=== PATIENT | female | born 1935 | race African-American/Black ===

== ENCOUNTER 2016-07-06 07:57 | Day surgery (SDC) | payer OTHER ==
[2016-06-30 14:28] VITALS: BMI 34.7
[2016-07-06] MEDS: CYCLOPENTOLATE HCL 1% OPHTH SOLN 2 ML BOTTLE ONE ×5 (08:15→08:35)
[2016-07-06] MEDS: FLURBIPROFEN 0.03% OPHTH SOLN 2.5 ML BOTTLE ONE ×5 (08:15→08:35)
[2016-07-06] MEDS: TROPICAMIDE 1% OPHTH SOLN 15 ML BOTTLE ONE ×5 (08:15→08:35)
[2016-07-06] MEDS: PHENYLEPHRINE 2.5% OPHTH SOLN 15 ML BOTTLE ONE ×5 (08:15→08:35)
[2016-07-06] MEDS: GENTAMICIN SULFATE 0.3% OPHTHALMIC (EYE DROPS) 5ML BOTTLE ONE ×5 (08:15→08:35)
[2016-07-06] MEDS ORDERED: ACETAMINOPHEN 325 MG TABLET (FP) PO PRN (09:45)
[2016-07-06 11:15] VITALS: TEMP 97.5
[2016-07-06 12:03] VITALS: BP 163/73; PULSE 65
--- NOTE | 2016-07-06 15:09 | OP ---
DATE OF OPERATION: 07/06/2016 TITLE OF PROCEDURE: Planned extracapsular cataract extraction, phacoemulsification, and insertion of posterior chamber intraocular lens implant through a myotic pupil. SURGEON: Efren Agrawal MD COST ACCOUNTING ANALYST SURGEON: Efren Agrawal MD COMPLICATIONS: None. PREOPERATIVE DIAGNOSES: Cataract, right eye and pupillary miosis, right eye. POSTOPERATIVE DIAGNOSES: Cataract, right eye and pupillary miosis, right eye. ANESTHESIA: Local standby. NURSE MEDICAL TRANSCRIBER: ANESTHESIOLOGIST: MD COMPLICATIONS: None. FINDINGS AND PROCEDURE: After successful peribulbar anesthesia a lid block was given to the right eye. The patient was prepped and draped in the usual manner to expose the right eye. A lid speculum was inserted, and the microscope brought into position over the eye. Incisions were made temporally, 2 incisions, 2.4 mm measuring in size inferiorly at 7 o'clock and also micro sharp incision at 11 o'clock. Viscoat was injected into the anterior chamber, filled the anterior chamber, and then, this was followed by a capsulorrhexis with forceps and then hydrodissection with BSS injection using a cannula. After the nucleus was mobile, the nucleus was chopped into 4 quadrants and phacoemulsified completely without complication. This was followed by irrigation and aspiration of all cortical material, leaving an intact posterior capsule and red reflex. It should be noted that this was done through a very myotic pupil which made the procedure more difficult. The Provisc was injected into the posterior chamber. The implant had been loaded into the cartridge, and it was injected such that the implant was placed into the posterior chamber, and it was unfolded and fixated such that the haptics were in the capsular bag, and then, the Provisc was then aspirated out and replaced with Miochol and Miostat BSS. The incisions were hydrated with BSS and tested for leakage, and none was found. The eye was now at normal tension. At this point, the implant was fixated in the capsular bag, centrally located with a round pupil intact posterior capsule. Red reflex present. Normal tension present. Topical Betoptic S and Maxitrol suspensions were placed, as was bacitracin ophthalmic ointment. The Tegaderm strips and lid speculum removed from the eye. The lids were closed. A patch and shield placed on the eye, and the patient was then discharged from the operating room to the recovery area in good condition, having tolerated the procedure well. EFREN AGRAWAL M.D. [id number]
== END 2016-07-06 12:15 | disposition home or self-care (01) ==
LOC: FASU 07:57
PROVIDERS: ATTEND Ophthalmology
PROC: 08RJ3JZ Replacement of Right Lens with Synthetic Substitute, Percutaneous Approach (ICD-10-PCS; principal; 2016-07-06 09:30)
DX: H26.8 Other specified cataract (principal); H57.03 Miosis